=== PATIENT | female | born 1995 | race Caucasian/White ===

== ENCOUNTER 2018-09-23 00:05 | Emergency (ER) | payer OTHER ==
[~2018-09-23] VITALS: Ht 167.6 cm; Wt 58.1 kg
[2018-09-23 00:10] VITALS: Ht 167.6 cm; Wt 58.1 kg
[2018-09-23 00:53] VITALS: BP 128/76
== END 2018-09-23 00:54 | disposition home or self-care (01) ==
LOC: ED 00:05
DX: S61.412D Laceration without foreign body of left hand, subsequent encounter (principal); Z88.1 Allergy status to other antibiotic agents; X58.XXXD Exposure to other specified factors, subsequent encounter